=== PATIENT | male | born 1965 | race Hispanic/Latino ===

== ENCOUNTER 2018-10-30 17:51 | Inpatient (IN) ==
[2018-10-30] MEDS ORDERED: NORMAL SALINE 1,000 ML IV ONE (18:15)
[2018-10-30] MEDS ORDERED: THIAMINE HCL 100 MG in NORMAL SALINE 50 ML IV ONE (18:15)
--- NOTE | 2018-10-30 18:19 | ERNOTE ---
Syncope ER HPI Stated Complaint: Fall, passed out twice Time Seen by Provider: 10/30/18 18:11 Source: patient Exam Limitations: no limitations Immunizations: IMMUNIZATION HX Immunizations Up to Date Yes History of Influenza Vaccine No Hx Pneumococcal Vaccination No Allergies/Adverse Reactions: Allergies meperidine HCl [From Demerol] Adverse Reaction (Mild, Verified 05/25/15 15:48) UPSET STOMACH Home Medications: HOME MEDICATIONS Multivit-Mins/Iron/Folic/Lycop [Centrum Ultra Men's Tablet] 1 each PO DAILY 05/06/15 [Last Taken Unknown] - History of Present Illness Narrative: Patient admits to drinking heavily today and not eating much and he passed out twice today. Patient denies any pain, but does appear to be inebriated. Prior Episodes: Present: recent history Symptoms prior to episode: Present: light headedness Activity at time of episode: Present: standing Character of event: Present: no loss of consciousness Location of Injury: Present: none Current Symptoms: Present: back to normal Review of Systems - Review of Systems Constitutional: Present: See HPI EYE: Present: no symptoms reported ENT: Present: no symptoms reported Respiratory: Present: no symptoms reported Cardiology: Present: no symptoms reported Gastrointestinal/Abdominal: Present: no symptoms reported Genitourinary: Present: no symptoms reported Musculoskeletal: Present: no symptoms reported Skin: Present: no symptoms reported Neurological: Present: no symptoms reported, other - Substantial alcohol abuse Endocrine: Present: no symptoms reported Hematologic/Lymphatic: Present: no symptoms reported Psych: Present: no symptoms reported Medical History (Updated 10/30/18 @ 18:03 by Taurus Maldonado RN) Seizures Vertigo Surgical History: Surgical History (Updated 10/30/18 @ 18:03 by Taurus Maldonado RN) H/O shoulder surgery left History of foot surgery Social History: Preferred Language Kazakh Do you have any oriental orthodox or Moravian cultural preference? Smoking Status Never smoker Abuse History No History of abuse Psych History No pertinent hx Alcohol Use heavy Drug Use none No Social History Section defined Physical Exam - Physical Exam General Appearance: Present: wd/wn, alert, no apparent distress Head Exam: Present: normal inspection, no evidence of injury Eye Exam: PERRL: bilateral, Scleral icterus: bilateral Ears, Nose, Throat: Present: normal ENT inspection, H, normal pharynx Neck: Present: normal inspection, nontender Respiratory: Present: no respiratory distress, normal breath sounds, no accessory muscle use, chest nontender, lungs clear Cardiovascular/Chest: Present: regular rate, rhythm, no murmur, normal pe ripheral pulses Gastrointestinal/Abdominal: Present: normal bowel sounds, nontender, nondistended, soft, no organomegaly Rectal Exam: Present: deferred Back Exam: Present: normal inspection, normal range of motion Extremity Exam: Present: normal inspection, non-tender, no edema, normal range of motion Neurological Exam: Present: alert, oriented, normal mood/affect Skin Exam: Present: warm/dry, jaundice Lymphatic Exam: Present: no adenopathy Progress - Results and Orders Patient's Lab Results:: I have reviewed the patient's lab results. - Vital Signs Patient's Vital Signs:: I have reviewed the patient's vital signs. Vital Signs: Vital Signs 10/30/18 17:52 Temperature 36.4 C Pulse Rate 93 Respiratory Rate 14 Blood Pressure 104/60 O2 Sat by Pulse Oximetry 99 - Progress/Reassessment Chief Complaint: Syncopal Episode Plan - Plan Plan: Patient will need to be admitted for correction of the severe anemia which I think is was precipitating the fainting episode. However he also has an alcohol of 384 that we will also need to be brought back into the normal range. Clearly his alcohol is started to get the best of him as he is now running with an ammonia mildly elevated and his PT/INR is somewhat elevated as well. Given the underlying jaundice I suspect that he is working hard on being in liver failure. Departure Clinical Impression: ETOH abuse Syncope Qualifiers: Syncope type: unspecified Qualified Code(s): R55 - Syncope and collapse Anemia Qualifiers: Anemia type: iron deficiency Iron deficiency anemia type: inadequate dietary iron intake Qualified Code(s): D50.8 - Other iron deficiency anemias - Departure Disposition: Still a patient Condition: Fair Referrals: Hiro Garrison DO [Primary Care Provider] -
[2018-10-30 18:32] LABS: Mean Cell Volume 64.2 fl (78-100); Mean Corpuscular Hemoglobin 16.3 pg (27-31); Mean Corpuscular Hgb Conc 25.4 g/dl (32-36); Mean Platelet Volume 7.9 fl (8-11.3); Neutrophil # 0.7 K/mm3 (1.3-6.0); Neutrophil % 30.8 % (42-75.0); Platelet Count 102 K/mm3 (150-450); Red Blood Count 3.07 M/mm3 (4.7-6.0); Red Cell Distribution Width 21.5 % (11.5-14.0); White Blood Count 2.4 K/mm3 (4.0-10.5)
[2018-10-30 18:37] LABS: Hematocrit 19.7 % (42.0-52.0)
[2018-10-30 18:38] LABS: Total Cells Counted 100
[2018-10-30 18:40] LABS: Prothrombin Time (Patient) 13.4 Seconds (9.1-10.7)
[2018-10-30 18:42] LABS: INR 1.37 INR (0.92-1.08)
[2018-10-30 18:44] LABS: Albumin * 2.7 gm/dl (3.4-5.0); BUN/Creatinine Ratio 6.2 (9.0-21.6); Bilirubin, Total 1.3 mg/dL (0.0-1.1); Ca. Corrected For Albumin 8.9 mg/dL (8.4-10.2); Calcium * 8.2 mg/dL (7.9-10.9); Carbon Dioxide 22.6 mmol/L (24-32.6); Magnesium 1.5 mg/dL (1.2-2.8); Potassium 3.6 mmol/L (3.4-4.6); Total Protein 7.4 gm/dL (6.2-8.2)
[2018-10-30 18:56] LABS: Basophil 1 % (0-1); Eosinophil 4 % (0-3); Lymphocyte 47 % (20-51); Monocyte 20 % (0-9); Neutrophil 28 % (42-75); Neutrophil # 0.7 K/mm3 (1.3-6.0)
[2018-10-30 18:57] LABS: Hypochromia 3+; Microcytosis 3+; Rouleaux 2+
[2018-10-30 18:58] LABS: Anisocytosis 1+; Ovalocytes 1+; Platelet Estimate Normal (NORMAL)
[2018-10-30 18:59] LABS: Urine Bilirubin Negative (NEGATIVE); Urine Blood Negative /ul (NEGATIVE); Urine Ketone Negative (NEGATIVE); Urine Nitrite Negative (NEGATIVE); Urine Protein Negative (NEGATIVE); Urine Specific Gravity <=1.005 SP.GR. (1.005-1.030); Urine Urobilinogen Normal (NORMAL); Urine pH 6.5 pH (5.0-7.0)
[2018-10-30 19:06] LABS: Urine Appearance Clear (CLEAR); Urine Color Yellow
[2018-10-30 19:07] LABS: Urine Bacteria 1+; Urine RBC None Seen /hpf (0-5); Urine WBC None Seen /hpf (0-5)
[2018-10-30 19:13] LABS: Cocaine Ur Negative (NEGATIVE); Urine Barbiturate Negative (NEGATIVE); Urine Benzodiazepines Negative (NEGATIVE); Urine Opiates Negative (NEGATIVE); Urine PCP Negative (NEGATIVE); Urine THC Negative (NEGATIVE)
[2018-10-30 19:33] LABS: Iron 12 mcg/dL (35-120); Transferrin Sat. (% Sat.) 4 % (15-55)
[2018-10-31 03:53] LABS: Hematocrit 27.4 % (42.0-52.0); Mean Cell Volume 69.5 fl (78-100); Mean Corpuscular Hemoglobin 19.3 pg (27-31); Mean Corpuscular Hgb Conc 27.7 g/dl (32-36); Mean Platelet Volume 7.8 fl (8-11.3); Neutrophil # 0.6 K/mm3 (1.3-6.0); Neutrophil % 28.2 % (42-75.0); Platelet Count 90 K/mm3 (150-450); Red Blood Count 3.94 M/mm3 (4.7-6.0); Red Cell Distribution Width 25.3 % (11.5-14.0)
[2018-10-31 04:23] LABS: Hemoglobin 7.6 gm/dL (13.5-18.0)
[2018-10-31 04:24] LABS: Total Cells Counted 100
[2018-10-31 04:25] LABS: Atypical (Reactive) Lymph 5 % (0-2); Basophil 5 % (0-1); Eosinophil 6 % (0-3); Immature Granulocyte 2 (0-1); Lymphocyte 34 % (20-51); Monocyte 17 % (0-9); Neutrophil 31 % (42-75); Neutrophil # 0.6 K/mm3 (1.3-6.0)
[2018-10-31 04:26] LABS: Hypochromia 3+; Microcytosis 3+
[2018-10-31 04:27] LABS: Platelet Estimate Decreased (NORMAL); Poikilocytosis 1+; Rouleaux 1+
[2018-10-31] MEDS ORDERED: LORazepam 1 MG TABLET PO PRN ×3 (09:52)
--- NOTE | 2018-10-31 10:23 | HP ---
Chief Complaint - Chief Complaint Date of Service: 10/31/18 Time of Service: 09:03 Chief Complaint: Syncope History of Present Illness: 53-year-old male with a past medical history of seizures, vertigo presents status post syncopal episode x2. He states he was shopping at a local pharmacy when he had a witnessed syncopal episode x2. He was then transported to the emergency department and found to have anemia with a hemoglobin of 5 and hematocrit of 19.7. He also was noted to have an alcohol level of 384. He states he does not drink alcohol every day and his last drink was yesterday. Denies blood in his urine, denies vomiting blood, denies blood in stool or black stools. Medical History (Updated 10/31/18 @ 10:23 by Duyen Joshua MD) Seizures Vertigo Surgical History: Surgical History (Updated 10/30/18 @ 18:03 by Taurus Maldonado RN) H/O shoulder surgery left History of foot surgery Social History: Patient Lives/Resources With Parents Utilized Occupation [employer] Preferred Language Maori Do you have any religion or Yes: Religion cultural preference? Smoking Status Never smoker Have you smoked in the past 12 No months Do you dip or chew tobacco Yes Abuse History No History of abuse Psych History No pertinent hx Alcohol Use heavy Drug Use none No Social History Section defined Review Of Systems (GEN) - Review of Systems Generalized/Overall Review: Present: Weakness. Absent: Chills, Fever Respiratory: Absent: Shortness of Breath Cardiac: Absent: Chest Pain Abdominal: Absent: Abdominal Pain Neurological: Present: Tremors, Weakness Misc: All systems neg except as marked Immunizations: IMMUNIZATION HX Immunizations Up to Date Yes History of Influenza Vaccine No Hx Pneumococcal Vaccination No Allergies/Adverse Reactions: Allergies Allergy/AdvReac Type Severity Reaction Status Date / Time meperidine HCl [From Demerol] AdvReac Mild UPSET Verified 05/25/15 15:48 STOMACH Home Medications: HOME MEDICATIONS Multivit-Mins/Iron/Folic/Lycop [Centrum Ultra Men's Tablet] 1 each PO DAILY 05/06/15 [Last Taken Unknown] Exam - Exam Vital Signs: Vital Signs - Last Taken Temp 36.9 C 10/31/18 10:05 Pulse 75 10/31/18 10:05 Resp 16 10/31/18 10:05 BP 117/61 10/31/18 10:05 Pulse Ox 97 10/31/18 10:05 Constitutional: Present: Alert, Cooperative, Well developed, Well nourished, No distress, Middle aged ENT Exam: Present: hearing grossly normal Eye Exam: bilateral eye: normal inspection, EOMI Neck: Present: supple, trachea midline. Absent: lymphadenopathy (R), lymphadenopathy (L) Back Exam: Present: normal inspection, no CVA tenderness, no vertebral tenderness Respiratory: Present: lungs clear, normal breath sounds, no respiratory distress, no accessory muscle use, No wheezing. Absent: crackles, rhonchi Cardiovascular/Chest: Present: normal peripheral pulses, regular rate, rhythm, no edema, no murmur Peripheral Pulses: dorsalis-pedis (R): 2+, dorsalis-pedis (L): 2+ Abdomen: Present: Normal bowel sounds, soft, nontender Extremity: Present: no pedal edema Skin Exam: Present: normal color, warm/dry Neurologic: Present: alert, normal mood/affect, other - Tremors of both upper extremities Appearance: Present: appropriate appearance, appropriate insight Eye contact: Present: cooperative, good eye contact Thoughts: Present: normal thought pattern, normal mood /affect Diagnostic Studies: Abnormal Lab Results 10/30/18 10/30/18 10/30/18 Range/Units 18:25 18:25 18:25 WBC 2.4 L (4.0-10.5) K/mm3 RBC 3.07 L (4.7-6.0) M/mm3 Hgb 5.0 L* (13.5-18.0) gm/dL Hct 19.7 L* (42.0-52.0) % MCV 64.2 L (78-100) fl MCH 16.3 L (27-31) pg MCHC 25.4 L (32-36) g/dl RDW 21.5 H (11.5-14.0) % Plt Count 102 L (150-450) K/mm3 MPV 7.9 L (8-11.3) fl Immature Gran % (Auto) 1.30 H (0.001-0.429) % Neutrophils % 30.8 L (42-75.0) % Neutrophils % (Manual) 28 L (42-75) % Monocytes % 17.7 H (0.0-9) % Monocytes % (Manual) 20 H (0-9) % Eosinophils % 5.5 H (0.0-3.0) % Eosinophils % (Manual) 4 H (0-3) % Basophils % 2.1 H (0.0-1.0) % Basophils % (Manual) (0-1) % Immature Granulocytes (0-1) Neutrophils # 0.7 L (1.3-6.0) K/mm3 Neutrophils # (Manual) 0.7 L (1.3-6.0) K/mm3 Lymphocytes # 1.01 L (1.5-3.5) k/mm3 Lymphocytes # (Manual) 1.1 L (1.5-3.5) k/mm3 Atypic/Reactive Lymphs (0-2) % Platelet Estimate (NORMAL) PT 13.4 H (9.1-10.7) Seconds INR (Anticoag Therapy) 1.37 H (0.92-1.08) INR Carbon Dioxide 22.6 L (24-32.6) mmol/L Anion Gap 14.0 H (6.8-13.8) mmol/L BUN 4 L (6-23) mg/dL Est GFR (Non-Af Amer) 137 H (60-130) mL/min BUN/Creatinine Ratio 6.2 L (9.0-21.6) Iron (35-120) mcg/dL Transferrin % Sat (15-55) % Ferritin (26-388) ng/mL Total Bilirubin 1.3 H (0.0-1.1) mg/dL ALT 17 L (19-67) U/L Ammonia (11-35) mcmol/L Albumin 2.7 L (3.4-5.0) gm/dl Urine Bacteria (NONE) Ethyl Alcohol 384.0 H (0.0-10.0) mg/dL Crossmatch 10/30/18 10/30/18 10/30/18 Range/Units 18:25 18:40 18:50 WBC (4.0-10.5) K/mm3 RBC (4.7-6.0) M/mm3 Hgb (13.5-18.0) gm/dL Hct (42.0-52.0) % MCV (78-100) fl MCH (27-31) pg MCHC (32-36) g/dl RDW (11.5-14.0) % Plt Count (150-450) K/mm3 MPV (8-11.3) fl Immature Gran % (Auto) (0.001-0.429) % Neutrophils % (42-75.0) % Neutrophils % (Manual) (42-75) % Monocytes % (0.0-9) % Monocytes % (Manual) (0-9) % Eosinophils % (0.0-3.0) % Eosinophils % (Manual) (0-3) % Basophils % (0.0-1.0) % Basophils % (Manual) (0-1) % Immature Granulocytes (0-1) Neutrophils # (1.3-6.0) K/mm3 Neutrophils # (Manual) (1.3-6.0) K/mm3 Lymphocytes # (1.5-3.5) k/mm3 Lymphocytes # (Manual) (1.5-3.5) k/mm3 Atypic/Reactive Lymphs (0-2) % Platelet Estimate (NORMAL) PT (9.1-10.7) Seconds INR (Anticoag Therapy) (0.92-1.08) INR Carbon Dioxide (24-32.6) mmol/L Anion Gap (6.8-13.8) mmol/L BUN (6-23) mg/dL Est GFR (Non-Af Amer) (60-130) mL/min BUN/Creatinine Ratio (9.0-21.6) Iron (35-120) mcg/dL Transferrin % Sat (15-55) % Ferritin (26-388) ng/mL Total Bilirubin (0.0-1.1) mg/dL ALT (19-67) U/L Ammonia 43.0 H (11-35) mcmol/L Albumin (3.4-5.0) gm/dl Urine Bacteria 1+ H (NONE) Ethyl Alcohol (0.0-10.0) mg/dL Crossmatch See Detail 10/30/18 10/30/18 10/31/18 Range/Units 19:00 19:00 03:45 WBC 2.0 L (4.0-10.5) K/mm3 RBC 3.94 L (4.7-6.0) M/mm3 Hgb 7.6 L* D (13.5-18.0) gm/dL Hct 27.4 L (42.0-52.0) % MCV 69.5 L (78-100) fl MCH 19.3 L (27-31) pg MCHC 27.7 L (32-36) g/dl RDW 25.3 H (11.5-14.0) % Plt Count 90 L (150-450) K/mm3 MPV 7.8 L (8-11.3) fl Immature Gran % (Auto) 1.00 H (0.001-0.429) % Neutrophils % 28.2 L (42-75.0) % Neutrophils % (Manual) 31 L (42-75) % Monocytes % 26.8 H (0.0-9) % Monocytes % (Manual) 17 H (0-9) % Eosinophils % 5.6 H (0.0-3.0) % Eosinophils % (Manual) 6 H (0-3) % Basophils % 2.5 H (0.0-1.0) % Basophils % (Manual) 5 H (0-1) % Immature Granulocytes 2 H (0-1) Neutrophils # 0.6 L (1.3-6.0) K/mm3 Neutrophils # (Manual) 0.6 L (1.3-6.0) K/mm3 Lymphocytes # 0.71 L (1.5-3.5) k/mm3 Lymphocytes # (Manual) 0.7 L (1.5-3.5) k/mm3 Atypic/Reactive Lymphs 5 H (0-2) % Platelet Estimate Decreased L (NORMAL) PT (9.1-10.7) Seconds INR (Anticoag Therapy) (0.92-1.08) INR Carbon Dioxide (24-32.6) mmol/L Anion Gap (6.8-13.8) mmol/L BUN (6-23) mg/dL Est GFR (Non-Af Amer) (60-130) mL/min BUN/Creatinine Ratio (9.0-21.6) Iron 12 L (35-120) mcg/dL Transferrin % Sat 4 L (15-55) % Ferritin 8 L (26-388) ng/mL Total Bilirubin (0.0-1.1) mg/dL ALT (19-67) U/L Ammonia (11-35) mcmol/L Albumin (3.4-5.0) gm/dl Urine Bacteria (NONE) Ethyl Alcohol (0.0-10.0) mg/dL Crossmatch Laboratory Results WBC 2.0 K/mm3 (4.0-10.5) L 10/31/18 03:45 RBC 3.94 M/mm3 (4.7-6.0) L 10/31/18 03:45 Hgb 7.6 gm/dL (13.5-18.0) L* D 10/31/18 03:45 Hct 27.4 % (42.0-52.0) L 10/31/18 03:45 MCV 69.5 fl (78-100) L 10/31/18 03:45 MCH 19.3 pg (27-31) L 10/31/18 03:45 MCHC 27.7 g/dl (32-36) L 10/31/18 03:45 RDW 25.3 % (11.5-14.0) H 10/31/18 03:45 Plt Count 90 K/mm3 (150-450) L 10/31/18 03:45 MPV 7.8 fl (8-11.3) L 10/31/18 03:45 Immature Gran % (Auto) 1.00 % (0.001-0.429) H 10/31/18 03:45 Immature Gran # (Auto) 0.02 K/mm3 (0.000-0.0310) 10/31/18 03:45 28.2 % (42-75.0) L 10/31/18 03:45 31 % (42-75) L 10/31/18 03:45 35.9 % (20-51) 10/31/18 03:45 34 % (20-51) 10/31/18 03:45 26.8 % (0.0-9) H 10/31/18 03:45 17 % (0-9) H 10/31/18 03:45 5.6 % (0.0-3.0) H 10/31/18 03:45 6 % (0-3) H 10/31/18 03:45 2.5 % (0.0-1.0) H 10/31/18 03:45 5 % (0-1) H 10/31/18 03:45 Nucleated RBC % 0.0 k/mm3 (0-1) 10/31/18 03:45 2 (0-1) H 10/31/18 03:45 0.6 K/mm3 (1.3-6.0) L 10/31/18 03:45 0.6 K/mm3 (1.3-6.0) L 10/31/18 03:45 0.71 k/mm3 (1.5-3.5) L 10/31/18 03:45 0.7 k/mm3 (1.5-3.5) L 10/31/18 03:45 0.5 k/mm3 (0.0-1.0) 10/31/18 03:45 0.3 k/mm3 (0.0-1.0) 10/31/18 03:45 0.1 k/mm3 (0.0-0.7) 10/31/18 03:45 0.1 k/mm3 (0.0-0.7) 10/31/18 03:45 0.1 k/mm3 (0.0-0.1) 10/31/18 03:45 Absolute Basophils 0.1 k/mm3 (0.0-0.1) 10/31/18 03:45 Atypic/Reactive Lymphs 5 % (0-2) H 10/31/18 03:45 Decreased (NORMAL) L 10/31/18 03:45 3+ 10/31/18 03:45 1+ 10/31/18 03:45 1+ 10/30/18 18:25 3+ 10/31/18 03:45 1+ 10/30/18 18:25 Rouleaux 1+ 10/31/18 03:45 PT 13.4 Seconds (9.1-10.7) H 10/30/18 18:25 INR (Anticoag Therapy) 1.37 INR (0.92-1.08) H 10/30/18 18:25 Sodium 135 mmol/L (132-142) 10/30/18 18:25 135 mmol/L (130-142) 10/30/18 18:25 Potassium 3.6 mmol/L (3.4-4.6) 10/30/18 18:25 Chloride 102 mmol/L (97-106) 10/30/18 18:25 Carbon Dioxide 22.6 mmol/L (24-32.6) L 10/30/18 18:25 14.0 mmol/L (6.8-13.8) H 10/30/18 18:25 BUN 4 mg/dL (6-23) L 10/30/18 18:25 0.65 mg/dL (0.4-1.4) 10/30/18 18:25 Est GFR (Non-Af Amer) 137 mL/min (60-130) H 10/30/18 18:25 6.2 (9.0-21.6) L 10/30/18 18:25 97 mg/dL (70-110) 10/30/18 18:25 Calcium 8.2 mg/dL (7.9-10.9) 10/30/18 18:25 Calcium Adj for Albumin 8.9 mg/dL (8.4-10.2) 10/30/18 18:25 Magnesium 1.5 mg/dL (1.2-2.8) 10/30/18 18:25 Iron 12 mcg/dL (35-120) L 10/30/18 19:00 TIBC 283 mcg/dL (260-445) 10/30/18 19:00 Transferrin % Sat 4 % (15-55) L 10/30/18 19:00 8 ng/mL (26-388) L 10/30/18 19:00 1.3 mg/dL (0.0-1.1) H 10/30/18 18:25 AST 44 U/L (0-48) 10/30/18 18:25 ALT 17 U/L (19-67) L 10/30/18 18:25 144 U/L (50-170) 10/30/18 18:25 43.0 mcmol/L (11-35) H 10/30/18 18:25 7.4 gm/dL (6.2-8.2) 10/30/18 18:25 2.7 gm/dl (3.4-5.0) L 10/30/18 18:25 Yellow 10/30/18 18:50 Clear (CLEAR) 10/30/18 18:50 6.5 pH (5.0-7.0) 10/30/18 18:50 Ur Specific [place] <=1.005 SP.GR. (1.005-1.030) 10/30/18 18:50 Negative mg/dL (NEGATIVE) 10/30/18 18:50 Negative mg/dL (NEGATIVE) 10/30/18 18:50 Negative mg/dL (NEGATIVE) 10/30/18 18:50 Negative /ul (NEGATIVE) 10/30/18 18:50 Negative (NEGATIVE) 10/30/18 18:50 Negative mg/dl (NEGATIVE) 10/30/18 18:50 Normal EU/dl (NORMAL) 10/30/18 18:50 Ur Leukocyte Esterase Negative /ul (NEGATIVE) 10/30/18 18:50 None seen /hpf (0-5) 10/30/18 18:50 None seen /hpf (0-5) 10/30/18 18:50 Ur Epithelial Cells 0-5 /hpf (0-5) 10/30/18 18:50 1+ (NONE) H 10/30/18 18:50 No culture indicated 10/30/18 18:50 Negative 10/30/18 18:50 Negative (NEGATIVE) 10/30/18 18:50 Negative (NEGATIVE) 10/30/18 18:50 Ur Phencyclidine Scrn Negative (NEGATIVE) 10/30/18 18:50 Urine Amphetamine Negative (NEGATIVE) 10/30/18 18:50 U Benzodiazepines Scrn Negative (NEGATIVE) 10/30/18 18:50 Negative (NEGATIVE) 10/30/18 18:50 Negative (NEGATIVE) 10/30/18 18:50 Ethyl Alcohol 384.0 mg/dL (0.0-10.0) H 10/30/18 18:25 Blood Type A Positive 10/30/18 18:40 Antibody Screen Negative 10/30/18 18:40 Crossmatch See Detail 10/30/18 18:40 Assessment/Plan - Narrative Narrative: 53-year-old male with a past medical history of seizures, vertigo presents statu s post syncopal episode x2. He states he was shopping at a local pharmacy when he had a witnessed syncopal episode x2. He was then transported to the emergency department and found to have anemia with a hemoglobin of 5 and hematocrit of 19.7. He also was noted to have an alcohol level of 384. He states he does not drink alcohol every day and his last drink was yesterday. He received 2 units of blood with good response. Vitals are stable. He will remain hospitalized for further monitoring due to the recurrent syncopal episodes prior to admission, monitoring for alcohol withdrawal and continued symptoms of weakness. Due to current guidelines he does not meet criteria for another unit of blood. He has no known cardiac history. - Assessment/Plan (1) Anemia Assessment: He is status post 2 units of packed red blood cells, he has had a good response to the 2 units and his hemoglobin is 7.6. He does not meet criteria for any further transfusions because he has no known cardiac history, vitals are stable and he is not undergoing any surgical procedures at this time. Iron studies are positive for iron deficiency. I will start him on oral iron. He has no signs of active bleeding. Problem: Acute Qualifiers: Anemia type: iron deficiency Iron deficiency anemia type: inadequate dietary iron intake Qualified Code(s): D50.8 - Other iron deficiency anemias (2) ETOH abuse Assessment: Start CIWA protocol, folate and thiamine. Problem: Chronic (3) Syncope Assessment: Etiology unclear, continue to monitor. Problem: Acute Qualifiers: Syncope type: unspecified Qualified Code(s): R55 - Syncope and collapse (4) Hyperammonemia Assessment: Limited pneumonia alcohol abuse. He does not appear to be in hepatic encephalopathy clinically at this time. No acute intervention needed at this time. Problem: Acute
[2018-10-31] MEDS: FOLIC ACID 1 MG TABLET PO SCH (10:58)
[2018-10-31] MEDS: THIAMINE HCL 100 MG TABLET PO SCH (10:58)
[2018-10-31] MEDS: ENOXAPARIN SODIUM 40 MG/0.4 ML SYRG SC SCH (10:58)
[2018-10-31] MEDS: FERROUS SULFATE 325 MG TABLET PO SCH (11:10)
[2018-10-31] MEDS ORDERED: ACETAMINOPHEN 325 MG TABLET PO PRN (16:56)
[2018-11-01 05:36] LABS: Hematocrit 26.8 % (42.0-52.0); Mean Cell Volume 68.7 fl (78-100); Mean Corpuscular Hemoglobin 19.2 pg (27-31); Mean Platelet Volume 7.8 fl (8-11.3); Platelet Count 84 K/mm3 (150-450); Red Cell Distribution Width 25.2 % (11.5-14.0); White Blood Count 2.7 K/mm3 (4.0-10.5)
[2018-11-01 06:30] LABS: Hemoglobin 7.5 gm/dL (13.5-18.0)
[2018-11-01 06:32] LABS: Total Cells Counted 100
[2018-11-01 06:45] LABS: Atypical (Reactive) Lymph 3 % (0-2); Basophil 1 % (0-1); Eosinophil 1 % (0-3); Immature Granulocyte 2 (0-1); Lymphocyte 40 % (20-51); Monocyte 13 % (0-9); Neutrophil 40 % (42-75); Neutrophil # 1.1 K/mm3 (1.3-6.0)
[2018-11-01 06:56] LABS: Hypochromia 2+; Microcytosis 3+; Schistocytes 1+; Target Cells 2+
[2018-11-01 06:57] LABS: Polychromasia 2+
[2018-11-01 06:58] LABS: Platelet Estimate Normal (NORMAL)
--- NOTE | 2018-11-01 08:47 | PATHPSR ---
PHYSICIAN: Duyen Joshua MD LAB#: [id number] SPECIMEN DATE: 11/01/2018 CLINICAL INFORMATION: Patient is a 33-year-old man with a medical history of seizures vertigo and status post syncopal episode x2 presents to the [facility] emergency room. Alcohol level is 384 mg/dL; Markers of chronic liver damage (albumin 2.7 g/dL, bilirubin 1.3 mg/dL, PT 13.4 seconds, Ammonia 43.0 mcmol/L). No reported in blood in stools or black stools. Low iron 12 mcg/dL and low ferritin 8 ng/mL. CBC has pancytopenia resulting in peripheral review by pathologist CBC: WBC 2.7 K/mm3, hemoglobin 10.5 gm/dl, hematocrit 26.8 %, MCV is 68.7 fl, MCH is 19.2 pg, MCHC is 28.0 g/dl, Platelet count 84,000/mm. Manual differential: Neutrophils 40 %, bands 0 %, lymphocytes 40 %, monocytes 13 %, eosinophils 1 %, basophils 1 %, atypical reactive lymphocytes 0 %. RED BLOOD CELLS: Hypochromic microcytic anemia with 2+ target cells, 1+ schistocytes PLATELETS: Thrombocytopenia WHITE BLOOD CELLS: Leukopenia DIAGNOSIS: PERIPHERAL BLOOD SMEAR, REVIEW BY PATHOLOGIST: -MICROCYTIC HYPOCHROMIC ANEMIA -THROMBOCYTOPENIA -LEUKOPENIA COMMENT: The microcytic hypochromic anemia is likely on the basis of iron deficiency. B12 and folate levels have been ordered. The patient has thrombocytopenia which is sometimes seen with liver disease. The leukopenia is not explained on peripheral smear review. The patient does have an history of increased protein as compared to albumin in 2016. Protein electophoresis is suggested. Evaluation by appointment clerk including possible bone marrow evaluation would be necessary to evaluate the leukopenia if it persists beyond this acute hospital admission. No immature elements or malignancy is identified on our examination. The findings are communicated by FAX and [employer] messaging.
[2018-11-01] MEDS ORDERED: THIAMINE HCL 100 MG TABLET PO SCH (09:00)
[2018-11-01] MEDS ORDERED: FOLIC ACID 1 MG TABLET PO SCH (09:00)
[2018-11-01 09:02] LABS: Folate 13.2 ng/mL (8.6-58.9)
[2018-11-01] MEDS: THIAMINE HCL 100 MG TABLET PO SCH (09:09)
[2018-11-01] MEDS: FERROUS SULFATE 325 MG TABLET PO SCH (09:09)
[2018-11-01] MEDS: FOLIC ACID 1 MG TABLET PO SCH (09:09)
[2018-11-01] MEDS: ENOXAPARIN SODIUM 40 MG/0.4 ML SYRG SC SCH (09:10)
--- NOTE | 2018-11-01 09:54 | DS ---
(1) Anemia Problem: Acute Qualifiers: Anemia type: iron deficiency Iron deficiency anemia type: inadequate dietary iron intake Qualified Code(s): D50.8 - Other iron deficiency anemias (2) ETOH abuse Problem: Chronic (3) Syncope Problem: Acute Qualifiers: Syncope type: unspecified Qualified Code(s): R55 - Syncope and collapse (4) Hyperammonemia Problem: Acute Description of Stay: 53-year-old male with a past medical history of seizures, vertigo presents status post syncopal episode x2. He states he was shopping at a local pharmacy when he had a witnessed syncopal episode x2. He was then transported to the emergency department and found to have anemia with a hemoglobin of 5 and hematocrit of 19.7. He also was noted to have an alcohol level of 384. He states he does not drink alcohol every day and his last drink was yesterday. He received 2 units of blood with good response. Vitals are stable. He will remain hospitalized for further monitoring due to the recurrent syncopal episodes prior to admission, monitoring for alcohol withdrawal and continued symptoms of weakness. Due to current guidelines he does not meet criteria for another unit of blood. He has no known cardiac history. Peripheral smear showed microcytic hypochromic anemia is likely on the basis of iron deficiency. B12 and folate levels have been ordered. The patient has thrombocytopenia which is sometimes seen with liver disease. The leukopenia is not explained on peripheral smear review. The patient does have an history of increased protein as compared to albumin in 2016. Protein electophoresis is suggested. Evaluation by sdc teacher including possible bone marrow evaluation would be necessary to evaluate the leukopenia if it persists beyond this acute hospital admission. No immature elements or malignancy is identified on our examination. He may need outpatient hematology consult for pancytopenia as noted above. Procedures Performed: none Results and Findings: Lab Pending Results 10/30/18 18:25: WBC 2.4 L, RBC 3.07 L, Hgb 5.0 L*, Hct 19.7 L*, MCV 64.2 L, MCH 16.3 L, MCHC 25.4 L, RDW 21.5 H, Plt Count 102 L, MPV 7.9 L, Immature Gran % (Auto) 1.30 H, Immature Gran # (Auto) 0.03, Neutrophils % 30.8 L, Neutrophils % (Manual) 28 L, Lymphocytes % 42.6, Lymphocytes % (Manual) 47, Monocytes % 17.7 H, Monocytes % (Manual) 20 H, Eosinophils % 5.5 H, Eosinophils % (Manual) 4 H, Basophils % 2.1 H, Basophils % (Manual) 1, Nucleated RBC % 0.0, Neutrophils # 0.7 L, Neutrophils # (Manual) 0.7 L, Lymphocytes # 1.01 L, Lymphocytes # (Manual) 1.1 L, Monocytes # 0.4, Monocytes # (Manual) 0.5, Eosinophils # 0.1, Eosinophils # (Manual) 0.1, Basophils # (Manual) 0.0, Absolute Basophils 0.1, Platelet Estimate Normal, Hypochromasia 3+, Anisocytosis 1+, Microcytosis 3+, Ovalocytes 1+, Rouleaux 2+ 10/30/18 18:25: PT 13.4 H, INR (Anticoag Therapy) 1.37 H 10/30/18 18:25: Sodium 135, Plasma Sodium 135, Potassium 3.6, Chloride 102, Carbon Dioxide 22.6 L, Anion Gap 14.0 H, BUN 4 L, Creatinine 0.65, Est GFR (Non- Af Amer) 137 H, BUN/Creatinine Ratio 6.2 L, Random Glucose 97, Calcium 8.2, Calcium Adj for Albumin 8.9, Magnesium 1.5, Total Bilirubin 1.3 H, AST 44, ALT 17 L, Alkaline Phosphatase 144, Total Protein 7.4, Albumin 2.7 L, Ethyl Alcohol 384.0 H 10/30/18 18:25: Ammonia 43.0 H 10/30/18 18:40: Blood Type A Positive, Antibody Screen Negative, Crossmatch See Detail 10/30/18 18:50: Urine Color Yellow, Urine Appearance Clear, Urine pH 6.5, Ur Specific [place] <=1.005, Urine Protein Negative, Urine Glucose (UA) Negative, Urine Ketones Negative, Urine Blood Negative, Urine Nitrate Negative, Urine Bilirubin Negative, Urine Urobilinogen Normal, Ur Leukocyte Esterase Negative, Urine RBC None seen, Urine WBC None seen, Ur Epithelial Cells 0-5, Urine Bacteria 1+ H, Urine Culture Comments No culture indicated 10/30/18 18:50: Urine Opiates Screen Negative, Barbiturate Screen Negative, Ur Phencyclidine Scrn Negative, Urine Amphetamine Negative, U Benzodiazepines Scrn Negative, Urine Cocaine Screen Negative, Urine Marijuana (THC) Negative 10/30/18 18:50: Stool Occult Blood Negative 10/30/18 19:00: Iron 12 L, TIBC 283, Transferrin % Sat 4 L 10/30/18 19:00: Ferritin 8 L 10/31/18 03:45: WBC 2.0 L, RBC 3.94 L, Hgb 7.6 L* D, Hct 27.4 L, MCV 69.5 L, MCH 19.3 L, MCHC 27.7 L, RDW 25.3 H, Plt Count 90 L, MPV 7.8 L, Immature Gran % (Auto) 1.00 H, Immature Gran # (Auto) 0.02, Neutrophils % 28.2 L, Neutrophils % (Manual) 31 L, Lymphocytes % 35.9, Lymphocytes % (Manual) 34, Monocytes % 26.8 H, Monocytes % (Manual) 17 H, Eosinophils % 5.6 H, Eosinophils % (Manual) 6 H, Basophils % 2.5 H, Basophils % (Manual) 5 H, Nucleated RBC % 0.0, Immature Granulocytes 2 H, Neutrophils # 0.6 L, Neutrophils # (Manual) 0.6 L, Lymphocytes # 0.71 L, Lymphocytes # (Manual) 0.7 L, Monocytes # 0.5, Monocytes # (Manual) 0.3, Eosinophils # 0.1, Eosinophils # (Manual) 0.1, Basophils # (Manual) 0.1, Absolute Basophils 0.1, Atypic/Reactive Lymphs 5 H, Platelet Estimate Decreased L, Hypochromasia 3+, Poikilocytosis 1+, Microcytosis 3+, Rouleaux 1+ 11/01/18 05:15: WBC 2.7 L D, RBC 3.90 L, Hgb 7.5 L*, Hct 26.8 L, MCV 68.7 L, MCH 19.2 L, MCHC 28.0 L, RDW 25.2 H, Plt Count 84 L, MPV 7.8 L, Neutrophils % (Manual) 40 L, Lymphocytes % (Manual) 40, Monocytes % (Manual) 13 H, Eosinophils % (Manual) 1, Basophils % (Manual) 1, Immature Granulocytes 2 H, Neutrophils # (Manual) 1.1 L, Lymphocytes # (Manual) 1.1 L, Monocytes # (Manual) 0.4, Eosinophils # (Manual) 0.0, Basophils # (Manual) 0.0, Atypic/Reactive Lymphs 3 H, Platelet Estimate Normal, Polychromasia 2+, Hypochromasia 2+, Microcytosis 3+, Target Cells 2+, Schistocytes 1+ 11/01/18 08:03: Absolute Retic 0.3990, Percent Retic 1.0, Immature Retic Fraction 25.8 H, Retic Hgb Content 16.6 L 11/01/18 08:03: Peripheral Blood Smear Smear sent to path. 11/01/18 08:22: Vitamin B12 658, Folate 13.2 Discharge Location: Home Disposition: Home self-care Condition: Fair Discharge Activity: Activity as tolerated Discharge Diet: General/regular food Referrals: Duyen Joshua MD [Primary Care Provider] - Prescriptions (Any new or edited meds): Ferrous Sulfate 325 mg PO DAILY #30 tab Complete Home Medications List: Complete Home Medication List: Multivit-Mins/Iron/Folic/Lycop [Centrum Ultra Men's Tablet] 1 each PO DAILY 05/06/15 Ferrous Sulfate 325 mg PO DAILY #30 tab 11/01/18
[2018-11-01 10:50] VITALS: BP 115/67
== END 2018-11-01 10:49 | disposition home or self-care (01) | DRG 812 ==
LOC: ER 17:51 → MS 19:44
PROVIDERS: ADMIT Family Medicine; ATTEND Internal Medicine
CPT/HCPCS: 36415; 80053; 80307; 80320; 81001; 82140; 82272; 82607; 82728; 82746; 83540; 83550; 83735; 85007; 85025; 85045; 85060; 85610; 86850; 93005; 96361; 96365; 99285; G0481; P9016